=== PATIENT | female | born 1985 | race Caucasian/White ===

== ENCOUNTER → 2016-07-14 | Outpatient (CLI) | payer BC ==
--- NOTE | 2016-07-15 14:35 | CR ---
EXAM DATE: 07/14/16 PATIENT'S AGE: 30 Patient: VIANNEY ARTEAGA Facility: [place], [place] Site . Site : 1985 Study: XRay Pelvis [id number]/26/2017 11:19:17 AM Ordering Physician: Steve García Final Report: HISTORY: Sacrococcygeal disorder. Findings: Lateral and 2 AP views of the sacrum demonstrates pelvic ring and sacral ala are intact. No fracture for dislocation is seen. Left-sided pelvic phleboliths are present. Impression: No bony abnormality identified within the sacrum or coccyx. Dictated by Natali Lopez MD @ Jul 15 2016 1:47AM (Electronic Signature) Report Signed by Proxy. IVANNA
== END ==
LOC: MW.CHFP 10:35
PROVIDERS: ATTEND Nurse Practitioner Family
DX: M53.3 Sacrococcygeal disorders, not elsewhere classified (principal)
CPT/HCPCS: 72220; 72220-26